=== PATIENT | female | born 1945 | race Caucasian/White ===

== ENCOUNTER 2017-11-19 12:35 | Outpatient (CLI) | payer BC ==
--- NOTE | 2017-11-19 13:58 | RAD ---
CHEST PA AND LATERAL: History: 72-year-old female with history of dyspnea. FINDINGS: Mild hyperinflation and chronic lung changes with some linear and parenchymal changes in the bases. H eart size is within normal limits. No confluent pneumonia, overt edema, or pleural effusion. IMPRESSION: Minimal hyperinflation and scattered bilateral interstitial chronic lung changes. No acute intrathora cic disease. POS: [facility]
== END 2017-11-19 12:36 | disposition home or self-care (01) ==
LOC: RAD 12:35
PROVIDERS: ATTEND Internal Medicine Critical Care Medicine
DX: R91.8 Other nonspecific abnormal finding of lung field (principal); R06.00 Dyspnea, unspecified
CPT/HCPCS: 71046

== ENCOUNTER 2018-12-23 13:05 | Outpatient (CLI) | payer BC ==
--- NOTE | 2018-12-23 13:22 | RAD ---
TWO VIEW CHEST: COMPARISON: 11/19/2017. INDICATION: Dyspnea. FINDINGS: There is interstitial prominence of each lung with relative lucency at the upper lung zones. There i s flattening of the hemidiaphragms. The chest is similar-appearing to prior exam. IMPRESSION: Stable chest, without evidence of chronic obstructive pulmonary disease. POS: [facility]
== END 2018-12-23 13:06 | disposition home or self-care (01) ==
LOC: RAD 13:05
PROVIDERS: ATTEND Internal Medicine Critical Care Medicine
DX: R06.00 Dyspnea, unspecified (principal)
CPT/HCPCS: 71046

== ENCOUNTER 2019-11-24 10:12 | Outpatient (CLI) | payer BC ==
--- NOTE | 2019-11-24 10:33 | RAD ---
EXAM: Chest 2 views: HISTORY: Dyspnea COMPARISON: None. FINDINGS: There is a normal-sized cardiomediastinal silhouette. There is no evidence of consolidation, mass, or pleural effusion. Mild degenerative changes are seen in the spine. IMPRESSION: No evidence of acute cardiopulmonary disease
== END 2019-11-24 10:13 | disposition home or self-care (01) ==
LOC: BICRAD 10:12
PROVIDERS: ATTEND Internal Medicine Critical Care Medicine
DX: R06.00 Dyspnea, unspecified (principal)
CPT/HCPCS: 71046

== ENCOUNTER 2020-09-07 09:59 | Outpatient (CLI) | payer OTHER | END 2020-09-07 10:00 | disposition home or self-care (01) | LOC: BICRAD 09:59 | PROVIDERS: ATTEND Internal Medicine Critical Care Medicine | DX: R06.00 Dyspnea, unspecified (principal); J98.4 Other disorders of lung | CPT/HCPCS: 71046 ==

== ENCOUNTER 2020-10-05 10:08 | Outpatient (CLI) | payer OTHER | END 2020-10-05 10:09 | disposition home or self-care (01) | LOC: BICRAD 10:08 | PROVIDERS: ATTEND Internal Medicine Critical Care Medicine | DX: R06.00 Dyspnea, unspecified (principal) | CPT/HCPCS: 71046 ==

== ENCOUNTER 2022-04-09 09:42 | Outpatient (CLI) | payer BC | END 2022-04-09 09:43 | disposition home or self-care (01) | LOC: BICRAD 09:42 | PROVIDERS: ATTEND Internal Medicine Critical Care Medicine | DX: R06.00 Dyspnea, unspecified (principal); J98.4 Other disorders of lung | CPT/HCPCS: 71046 ==

== ENCOUNTER 2022-08-01 13:34 | Outpatient (CLI) | payer MEDICARE | END 2022-08-01 13:35 | disposition home or self-care (01) | LOC: RAD 13:34 | PROVIDERS: ATTEND Internal Medicine Critical Care Medicine | DX: R06.00 Dyspnea, unspecified (principal) | CPT/HCPCS: 71046; 81001; 87086 ==

== ENCOUNTER 2022-08-14 11:05 | Outpatient (CLI) | payer MEDICARE | END 2022-08-14 11:06 | disposition home or self-care (01) | LOC: RAD 11:05 | PROVIDERS: ATTEND Internal Medicine Critical Care Medicine | DX: R06.00 Dyspnea, unspecified (principal) | CPT/HCPCS: 71046 ==

== ENCOUNTER 2023-05-09 12:59 | Outpatient (CLI) | payer MEDICARE | END 2023-05-09 13:00 | disposition home or self-care (01) | LOC: RAD 12:59 | PROVIDERS: ATTEND Internal Medicine Critical Care Medicine | DX: R06.00 Dyspnea, unspecified (principal) | CPT/HCPCS: 71046 ==

== ENCOUNTER 2023-11-05 14:32 | Outpatient (CLI) | payer OTHER | END 2023-11-05 14:33 | disposition home or self-care (01) | LOC: RAD 14:32 | PROVIDERS: ATTEND Internal Medicine Critical Care Medicine | DX: R06.00 Dyspnea, unspecified (principal); J44.9 Chronic obstructive pulmonary disease, unspecified | CPT/HCPCS: 71046 ==

== ENCOUNTER 2023-12-30 14:21 | Outpatient (CLI) | payer OTHER | END 2023-12-30 14:22 | disposition home or self-care (01) | LOC: RAD 14:21 | PROVIDERS: ATTEND Internal Medicine Critical Care Medicine | DX: R06.00 Dyspnea, unspecified (principal); J44.9 Chronic obstructive pulmonary disease, unspecified | CPT/HCPCS: 71046 ==